=== PATIENT | male | born 1975 | race Caucasian/White ===

== ENCOUNTER 2025-03-26 11:27 | Emergency (ER) | payer OTHER ==
[~2025-03-26] VITALS: Ht 180.3 cm; Wt 77.1 kg
== END 2025-03-26 12:55 | disposition home or self-care (01) ==
LOC: ED 11:27
DX: S69.92XA Unspecified injury of left wrist, hand and finger(s), initial encounter (principal); W18.30XA Fall on same level, unspecified, initial encounter
CPT/HCPCS: 73130; 99283